=== PATIENT | female | born 1975 | race Caucasian/White ===

== ENCOUNTER 2017-08-07 13:21 | Emergency (ER) | payer SELFPAY ==
[~2017-08-07 13:21] MED LIST: ACET325T14 PO; HYDR-3241 PO; PROM25TA10 PO
[2017-08-07] MEDS ORDERED: MECLIZINE CHEWABLE 25 MG TAB PO ONE (13:30)
[2017-08-07 14:16] LABS: BASOPHILS # (AUTO) 0.06 x10^3/uL (0-0.1); BASOPHILS % (AUTO) 1 % (0-1); EOSINOPHILS # (AUTO) 0.22 x10^3/uL (0-0.4); EOSINOPHILS % (AUTO) 2 % (1-7); LYMPHOCYTES % (AUTO) 17 % (22-44); MD NO; MEAN CORPUSCULAR HEMOGLOBIN 28.9 pg (27.0-34.8); MEAN CORPUSCULAR HGB CONC 33.8 g/dL (32.4-35.8); MEAN CORPUSCULAR VOLUME 85.5 fL (80-100); MEAN PLATELET VOLUME 9.6 fL (7.4-10.4); MONOCYTES # (AUTO) 0.64 x10^3/uL (0.2-0.8); MONOCYTES % (AUTO) 5 % (2-9); NEUTROPHILS # (AUTO) 10.04 x10^3/uL (1.8-6.8); NEUTROPHILS % (AUTO) 76 % (42-75); PLATELET COUNT 219 x10^3/uL (130-400); RED BLOOD COUNT 5.45 x10^6/uL (3.82-5.3); RED CELL DISTRIBUTION WIDTH 14.8 % (9.6-15.2)
[2017-08-07 14:27] LABS: ALBUMIN 3.3 g/dL (3.4-5.0); ANION GAP 5 mmol/L (5-15); CALCIUM 9.8 mg/dL (8.5-10.1); CHLORIDE 110 mmol/L (98-107); CREATININE 0.78 mg/dL (0.55-1.02)
[2017-08-07] MEDS ORDERED: MECLIZINE CHEWABLE 25 MG TAB ONE (17:02)
[2017-08-07 18:16] VITALS: BP 121/63
[2017-08-07 19:21] LABS: MICROSCOPIC INDICATED
[2017-08-07 19:37] LABS: CULTURE INDICATED? YES
== END 2017-08-07 19:43 | disposition home or self-care (01) ==
LOC: ED 19:00
DX: R42 Dizziness and giddiness (principal); F17.200 Nicotine dependence, unspecified, uncomplicated; R82.99 Other abnormal findings in urine
CPT/HCPCS: 36415; 71045; 80048; 81001; 82040; 84703; 85025; 87086; 93005; 99285